=== PATIENT | female | born 1970 | race Caucasian/White ===

== ENCOUNTER 2018-08-29 09:55 | Emergency (ER) | payer MEDICAID ==
[~2018-08-29] VITALS: Ht 157.5 cm; Wt 52.6 kg
[2018-08-29 10:00] VITALS: BP 170/85
[2018-08-29] MEDS ORDERED: KETOROLAC 30 MG/1 ML IM ONE (10:30)
[2018-08-29] MEDS ORDERED: KETOROLAC 30 MG/1 ML ONE (10:44)
--- NOTE | 2018-08-29 11:10 | NUR ---
LATE ENTRY: PT CRYING IN ROOM STATING THAT SHE HAS NO PLACE TO GO. ERP AT BEDSIDE. PT GIVEN ADDITIONAL RESOURCE PAPERWORK FOR WOMEN'S CUSTODIAL. PT WALKED TO MAIN NURSING STATION REQUESTING HER DOG BACK, FROM THE [facility] IN THE AMBULANCE BAY. PT PUT RESOURCE PAPERWORK ON COUNTER STATING "I DON'T NEED THAT IT WONT HELP ME." PT ELOPED WITHOUT DC PAPERWORK. PT AMBULATED WITH STEADY GAIT.
== END 2018-08-29 11:14 | disposition left against medical advice (07) ==
LOC: ED 11:08
DX: S09.90XA Unspecified injury of head, initial encounter (principal); S89.91XA Unspecified injury of right lower leg, initial encounter; S89.92XA Unspecified injury of left lower leg, initial encounter; J15.9 Unspecified bacterial pneumonia; F17.200 Nicotine dependence, unspecified, uncomplicated; Y04.8XXA Assault by other bodily force, initial encounter; Y93.89 Activity, other specified; Y92.009 Unspecified place in unspecified non-institutional (private) residence as the place of occurrence of the external cause; Y99.8 Other external cause status
CPT/HCPCS: 71046; 99283

== ENCOUNTER 2019-10-20 16:06 | Inpatient (IN) | payer MEDICAID ==
[~2019-10-20] VITALS: Ht 157.5 cm; Wt 62.8 kg
--- NOTE | 2019-10-20 17:37 | NUR ---
SUMATRA OPENER; PT AMBULATORY WITH STEADY GAIT TO ROOM AT THIS TIME. CARLOS
[2019-10-20] MEDS ORDERED: KETOROLAC 30 MG/1 ML IM ONE (18:00)
[2019-10-20] MEDS ORDERED: SODIUM CHLORIDE 0.9% 1,000ML IV ONE (18:00)
[2019-10-20] MEDS ORDERED: PHENAZOPYRIDINE 200 MG TABLET PO ONE (18:00)
[2019-10-20] MEDS ORDERED: SODIUM CHLORIDE FLUSH 10ML SYR IVF ONE (18:00)
[2019-10-20] MEDS ORDERED: KETOROLAC 30 MG/1 ML ONE (18:08)
[2019-10-20] MEDS ORDERED: PHENAZOPYRIDINE 200 MG TABLET ONE (18:08)
[2019-10-20 18:09] LABS: CULTURE INDICATED? YES; MICROSCOPIC INDICATED
[2019-10-20 18:12] LABS: MEAN CORPUSCULAR HEMOGLOBIN 28.9 pg (27.0-34.8); MEAN CORPUSCULAR HGB CONC 32.3 g/dL (32.4-35.8); MEAN CORPUSCULAR VOLUME 89.5 fL (80-100); MEAN PLATELET VOLUME 9.9 fL (7.4-10.4); PLATELET COUNT 265 x10^3/uL (130-400); RED BLOOD COUNT 5.61 x10^6/uL (3.82-5.3); RED CELL DISTRIBUTION WIDTH 13.3 % (9.6-15.2)
[2019-10-20 18:24] LABS: ALBUMIN 3.3 g/dL (3.4-5.0); ANION GAP 7 mmol/L (5-15); CHLORIDE 106 mmol/L (98-107); CREATININE 0.81 mg/dL (0.55-1.02)
[2019-10-20] MEDS ORDERED: CEFTRIAXONE PMX 1GM/50ML 50 ML ONE (18:25)
[2019-10-20 18:30] LABS: BASOPHILS # (AUTO) 0.07 x10^3/uL (0-0.1); BASOPHILS % (AUTO) 0 % (0-1); EOSINOPHILS # (AUTO) 0.14 x10^3/uL (0-0.4); EOSINOPHILS % (AUTO) 1 % (1-7); LYMPHOCYTES # (AUTO) 2.44 x10^3/uL (1-3.4); LYMPHOCYTES % (AUTO) 15 % (22-44); MD SCAN; MONOCYTES # (AUTO) 1.62 x10^3/uL (0.2-0.8); MONOCYTES % (AUTO) 10 % (2-9); NEUTROPHILS % (AUTO) 75 % (42-75)
[2019-10-20] MEDS ORDERED: CEFTRIAXONE PMX 1GM/50ML 50 ML IV ONE (18:30)
--- NOTE | 2019-10-20 18:53 | NUR ---
bedside report from torres mcclain
[2019-10-20] MEDS ORDERED: KETOROLAC 30 MG/1 ML IVPush ONE (19:00)
--- NOTE | 2019-10-20 19:03 | NUR ---
Provided bedside report to JACKLYN Feldman. All questions answered. Francia RN to assume care of pt at this time.
--- NOTE | 2019-10-20 19:49 | NUR ---
PIV infiltrated. new iv started on other arm with good blood return
--- NOTE | 2019-10-20 19:55 | NUR ---
report to torres strickland
[2019-10-20] MEDS ORDERED: ONDANSETRON 2MG/ML, 2ML IVPush PRN (20:30)
[2019-10-20] MEDS ORDERED: NICOTINE 21 MG/24 HR PATCH.TD24 TD SCH (20:30)
[2019-10-20] MEDS ORDERED: ACETAMINOPHEN 325 MG TABLET PO PRN (20:30)
[2019-10-20] MEDS ORDERED: morphine SULFATE 10 MG/ML, 1ML IVPush PRN ×2 (20:30→20:32)
[2019-10-20] MEDS ORDERED: LORazepam 1MG TABLET PO PRN (20:30)
[2019-10-20 20:47] LABS: BILIRUBIN, DIRECT 0.2 mg/dL (0.1-0.2)
[2019-10-20 20:48] VITALS: BP 144/80
[2019-10-20 20:49] LABS: ALBUMIN 3.3 g/dL (3.4-5.0); BILIRUBIN,INDIRECT 0.5 mg/dL (0.0-2.0); BILIRUBIN,TOTAL 0.7 mg/dL (0.2-1.0)
[2019-10-20] MEDS: LACTATED RINGERS 1,000 ML IV SCH (21:00)
[2019-10-20 21:08] LABS: HCG UR SG 1.018 (1.003-1.030)
[2019-10-20 21:10] LABS: AMPHETAMINE SCREEN, URINE Positive (Negative); BARBITURATE SCREEN, URINE Negative (Negative); BENZODIAZEPINE SCREEN, URINE Negative (Negative); CANNABINOID SCREEN, URINE Negative (Negative); COCAINE SCREEN, URINE Negative (Negative); METHADONE SCREEN, URINE Negative (Negative); OPIATE SCREEN, URINE Negative (Negative)
[2019-10-21 00:32] VITALS: BP 148/76
[2019-10-21 05:27] LABS: MEAN CORPUSCULAR HEMOGLOBIN 29.3 pg (27.0-34.8); MEAN CORPUSCULAR VOLUME 88.7 fL (80-100); MEAN PLATELET VOLUME 10.1 fL (7.4-10.4); PLATELET COUNT 240 x10^3/uL (130-400); RED BLOOD COUNT 4.76 x10^6/uL (3.82-5.3); RED CELL DISTRIBUTION WIDTH 13.6 % (9.6-15.2)
[2019-10-21 05:39] LABS: ANION GAP 4 mmol/L (5-15); CALCIUM 8.5 mg/dL (8.5-10.1); CHLORIDE 110 mmol/L (98-107); CREATININE 0.81 mg/dL (0.55-1.02)
[2019-10-21] MEDS: LACTATED RINGERS 1,000 ML IV SCH ×2 (05:45→17:01)
[2019-10-21 06:06] LABS: BASOPHILS # (AUTO) 0.04 x10^3/uL (0-0.1); BASOPHILS % (AUTO) 0 % (0-1); EOSINOPHILS # (AUTO) 0.19 x10^3/uL (0-0.4); EOSINOPHILS % (AUTO) 2 % (1-7); LYMPHOCYTES # (AUTO) 2.12 x10^3/uL (1-3.4); LYMPHOCYTES % (AUTO) 17 % (22-44); MD SCAN; MONOCYTES # (AUTO) 1.53 x10^3/uL (0.2-0.8); MONOCYTES % (AUTO) 12 % (2-9); NEUTROPHILS # (AUTO) 8.94 x10^3/uL (1.8-6.8); NEUTROPHILS % (AUTO) 70 % (42-75)
[2019-10-21 07:23] VITALS: BP 148/88
[2019-10-21 15:49] VITALS: BP 136/77
[2019-10-21] MEDS ORDERED: CEFTRIAXONE PMX 1GM/50ML 50 ML IV SCH (18:00)
== END 2019-10-21 18:32 | disposition left against medical advice (07) | DRG 872 ==
LOC: ED 18:55 → EDIP 18:56 → 3N 20:19
PROVIDERS: ADMIT Family Medicine; ATTEND Family Medicine
DX: A41.9 Sepsis, unspecified organism (principal); E44.0 Moderate protein-calorie malnutrition; N10 Acute pyelonephritis; R65.20 Severe sepsis without septic shock; Z53.29 Procedure and treatment not carried out because of patient's decision for other reasons; Z88.6 Allergy status to analgesic agent; Z88.0 Allergy status to penicillin; Z88.2 Allergy status to sulfonamides; F15.10 Other stimulant abuse, uncomplicated; F17.210 Nicotine dependence, cigarettes, uncomplicated; F43.10 Post-traumatic stress disorder, unspecified; Z59.0 Homelessness; Z91.19 Patient's noncompliance with other medical treatment and regimen; Z68.25 Body mass index [BMI] 25.0-25.9, adult
CPT/HCPCS: 36415; 80048; 80076; 80307; 81001; 81025; 82040; 83605; 85025; 87040; 87077; 87086; 87186; 96374; G0378; J0696; J1885; J2270; J7030; J7120

== ENCOUNTER 2019-11-19 07:47 | Emergency (ER) | payer MEDICAID ==
[~2019-11-19] VITALS: Ht 157.5 cm; Wt 61.4 kg
--- NOTE | 2019-11-19 08:20 | NUR ---
FIRST CONTACT WITH PT. PT C/O SORE THROAT FOR FOUR DAYS, NECK PAIN, LYMPH PAIN. PT DENIES COUGH/SOB. PT'S AOX4. RESPS EVEN AND UNLABORED. BP/SPO2 MONITORS IN PLACE. CALL LIGHT WITHIN REACH. PA AT BEDSIDE TO EVALUATE AT THIS TIME.
[2019-11-19 08:21] VITALS: BP 168/83
[2019-11-19] MEDS ORDERED: DEXAMETHASONE 4 MG/ML, 1ML ONE (08:26)
[2019-11-19] MEDS ORDERED: DEXAMETHASONE 4 MG/ML, 1ML PO ONE (08:30)
--- NOTE | 2019-11-19 08:31 | NUR ---
PT MEDICATED PER EMAR. PT TOLERATED WELL.
--- NOTE | 2019-11-19 08:39 | NUR ---
Patient given discharge instructions and they have confirmed that they understand the instructions. Patient ambulatory with steady gait.
== END 2019-11-19 08:40 | disposition home or self-care (01) ==
LOC: ED 08:24
DX: J03.00 Acute streptococcal tonsillitis, unspecified (principal); H92.02 Otalgia, left ear
CPT/HCPCS: 99283; J1100

== ENCOUNTER 2019-11-20 19:45 | Inpatient (IN) | payer MEDICAID ==
[~2019-11-20] VITALS: Ht 157.5 cm; Wt 64.3 kg
--- NOTE | 2019-11-20 19:54 | NUR ---
Patient BIB [facility] c/o sore throat, ear, and neck pain. Patient was here yesterday for same and symptoms became worse since then. Patient is obviously uncomfortable. Respirations even and unlabored.
[2019-11-20] MEDS ORDERED: ONDANSETRON 2MG/ML, 2ML IVPush ONE (20:00)
[2019-11-20] MEDS ORDERED: MORPHINE SULFATE 4 MG/ML, 1ML IVPush PRN (20:00)
[2019-11-20] MEDS ORDERED: CLINDAMYCIN 150 MG/ML, 6ML IV ONE (20:00)
[2019-11-20] MEDS ORDERED: SODIUM CHLORIDE 0.9% 1,000ML IVBOLUS ONE (20:00)
[2019-11-20] MEDS ORDERED: MORPHINE SULFATE 4 MG/ML, 1ML ONE (20:01)
[2019-11-20] MEDS ORDERED: ONDANSETRON 2MG/ML, 2ML ONE (20:01)
[2019-11-20] MEDS ORDERED: CLINDAMYCIN PMX 600MG/50ML 50 ML ONE (20:17)
[2019-11-20] MEDS ORDERED: CLINDAMYCIN PMX 600MG/50ML 50 ML IV ONE (20:30)
--- NOTE | 2019-11-20 20:44 | NUR ---
Patient states the morphine improved her pain.
[2019-11-20 21:00] LABS: ALBUMIN 3.3 g/dL (3.4-5.0); ANION GAP 6 mmol/L (5-15); CALCIUM 9.5 mg/dL (8.5-10.1); CHLORIDE 103 mmol/L (98-107); CREATININE 0.68 mg/dL (0.55-1.02)
[2019-11-20 21:03] LABS: MEAN CORPUSCULAR HEMOGLOBIN 28.5 pg (27.0-34.8); MEAN CORPUSCULAR VOLUME 89.1 fL (80-100); MEAN PLATELET VOLUME 10.1 fL (7.4-10.4); PLATELET COUNT 366 x10^3/uL (130-400); RED BLOOD COUNT 5.41 x10^6/uL (3.82-5.3); RED CELL DISTRIBUTION WIDTH 13.5 % (9.6-15.2)
--- NOTE | 2019-11-20 21:25 | NUR ---
Patient in CT.
[2019-11-20] MEDS ORDERED: OMNIPAQUE 350 MG/ML, 100ML BOTTLE ONE (21:35)
[2019-11-20 21:39] LABS: BASOPHILS # (AUTO) 0.11 x10^3/uL (0-0.1); BASOPHILS % (AUTO) 1 % (0-1); EOSINOPHILS # (AUTO) 0.09 x10^3/uL (0-0.4); EOSINOPHILS % (AUTO) 1 % (1-7); LYMPHOCYTES % (AUTO) 12 % (22-44); MD SCAN; MONOCYTES # (AUTO) 1.95 x10^3/uL (0.2-0.8); MONOCYTES % (AUTO) 10 % (2-9); NEUTROPHILS # (AUTO) 15.65 x10^3/uL (1.8-6.8); NEUTROPHILS % (AUTO) 78 % (42-75)
[2019-11-20] MEDS ORDERED: LIDOCAINE-MPF 1%, 5ML ONE (23:14)
[2019-11-20] MEDS ORDERED: BENZOCAINE 20% SPRAY 0.5ML ONE (23:14)
[2019-11-20] MEDS ORDERED: BENZOCAINE AEROSOL SPRAY 20%, 60ML TP ONE (23:30)
[2019-11-20] MEDS ORDERED: LIDOCAINE-MPF 1%, 5ML INFIL ONE (23:30)
[2019-11-20] MEDS ORDERED: LIDOCAINE 1%-EPI 1:100K, 20ML ONE (23:43)
[2019-11-21] MEDS ORDERED: BISACODYL 10 MG SUPP PR PRN
[2019-11-21] MEDS ORDERED: ONDANSETRON 2MG/ML, 2ML IVPush PRN
[2019-11-21] MEDS ORDERED: morphine SULFATE 10 MG/ML, 1ML IVPush PRN
[2019-11-21] MEDS ORDERED: ACETAMINOPHEN 325 MG TABLET PO PRN
[2019-11-21] MEDS ORDERED: POLYETHYLENE GLYCOL 17 GM PACKET PO PRN
[2019-11-21] MEDS ORDERED: hydrALAzine 20 MG/ML, 1ML IVPush PRN
--- NOTE | 2019-11-21 00:08 | NUR ---
Report given to JACKLYN Carmichael. ENT in room now performing procedure. Patient to be transferred to room 469.
[2019-11-21] MEDS: LORazepam 2 MG/ML, 1ML IVPush ONE ×2 (00:45→00:56)
[2019-11-21] MEDS: NICOTINE 14MG/24 HR PATCH.TD24 TD SCH ×2 (00:56→23:49)
[2019-11-21] MEDS: NS + 20MEQ KCL 1,000 ML IV SCH ×3 (01:14→17:58)
[2019-11-21] MEDS: CLINDAMYCIN PMX 600MG/50ML 50 ML IV SCH ×3 (04:21→20:13)
[2019-11-21 05:23] LABS: MEAN CORPUSCULAR HEMOGLOBIN 29.4 pg (27.0-34.8); MEAN CORPUSCULAR HGB CONC 33.1 g/dL (32.4-35.8); MEAN CORPUSCULAR VOLUME 88.7 fL (80-100); MEAN PLATELET VOLUME 9.6 fL (7.4-10.4); PLATELET COUNT 328 x10^3/uL (130-400); RED BLOOD COUNT 4.51 x10^6/uL (3.82-5.3)
[2019-11-21 05:31] LABS: ANION GAP 4 mmol/L (5-15); CALCIUM 8.4 mg/dL (8.5-10.1); CHLORIDE 106 mmol/L (98-107)
[2019-11-21 05:34] LABS: CREATININE 0.61 mg/dL (0.55-1.02)
[2019-11-21 06:09] LABS: MD YES
[2019-11-21 06:11] LABS: <PLATELET ESTIMATE> ADEQUATE; <PLT MORPHOLOGY> NORMAL PLT MORPH; <RBC MORPHOLOGY> NORMAL; BAND#(MANUAL) 0.72 x10^3/uL; BANDS%(MANUAL) 4 % (0-7); LYMPH#(MANUAL) 3.94 x10^3/uL (1-3.4); LYMPHS% (MANUAL) 22 % (22-44); MONOS% (MANUAL) 5 % (2-9); SEG#(MANUAL) 12.35 x10^3/uL (1.8-6.8); SEGS% (MANUAL) 69 % (42-75)
[2019-11-21 06:47] VITALS: BP 138/89
[2019-11-21 13:15] VITALS: BP 143/84
[2019-11-21 18:51] VITALS: BP 135/71
[2019-11-22 01:14] VITALS: BP 138/80
[2019-11-22] MEDS: NS + 20MEQ KCL 1,000 ML IV SCH (01:41)
[2019-11-22] MEDS: CLINDAMYCIN PMX 600MG/50ML 50 ML IV SCH (04:04)
[2019-11-22 05:46] LABS: BASOPHILS # (AUTO) 0.17 x10^3/uL (0-0.1); BASOPHILS % (AUTO) 1 % (0-1); EOSINOPHILS # (AUTO) 0.25 x10^3/uL (0-0.4); EOSINOPHILS % (AUTO) 2 % (1-7); LYMPHOCYTES # (AUTO) 3.17 x10^3/uL (1-3.4); LYMPHOCYTES % (AUTO) 27 % (22-44); MD NO; MEAN CORPUSCULAR HEMOGLOBIN 28.9 pg (27.0-34.8); MEAN CORPUSCULAR HGB CONC 32.4 g/dL (32.4-35.8); MEAN CORPUSCULAR VOLUME 89.2 fL (80-100); MEAN PLATELET VOLUME 10.1 fL (7.4-10.4); MONOCYTES # (AUTO) 1.15 x10^3/uL (0.2-0.8); MONOCYTES % (AUTO) 10 % (2-9); NEUTROPHILS # (AUTO) 7.14 x10^3/uL (1.8-6.8); NEUTROPHILS % (AUTO) 60 % (42-75); PLATELET COUNT 310 x10^3/uL (130-400); RED BLOOD COUNT 4.41 x10^6/uL (3.82-5.3); RED CELL DISTRIBUTION WIDTH 13.3 % (9.6-15.2)
[2019-11-22 05:50] LABS: ALBUMIN 2.2 g/dL (3.4-5.0); ANION GAP 5 mmol/L (5-15); CALCIUM 8.4 mg/dL (8.5-10.1); CHLORIDE 111 mmol/L (98-107)
[2019-11-22 05:53] LABS: ALANINE AMINOTRANSFERASE 7 U/L (12-78); ALKALINE PHOSPHATASE 33 U/L (45-117); BILIRUBIN,TOTAL 0.6 mg/dL (0.2-1.0); CREATININE 0.71 mg/dL (0.55-1.02); TOTAL PROTEIN 5.9 g/dL (6.4-8.2)
[2019-11-22 06:36] VITALS: BP 131/84
[2019-11-22] MEDS ORDERED: CEFD300C37 PO (11:25)
== END 2019-11-22 12:00 | disposition home or self-care (01) | DRG 854 ==
LOC: ED 20:39 → EDIP 11-21 00:17 → 4NE 11-21 00:40
PROVIDERS: ADMIT Family Medicine; ATTEND Family Medicine
PROC: 0J950ZZ Drainage of Left Neck Subcutaneous Tissue and Fascia, Open Approach (ICD-10-PCS; principal; 2019-11-21)
DX: A41.9 Sepsis, unspecified organism (principal); J36 Peritonsillar abscess; L02.11 Cutaneous abscess of neck; E87.6 Hypokalemia; F15.10 Other stimulant abuse, uncomplicated; F17.210 Nicotine dependence, cigarettes, uncomplicated; F43.10 Post-traumatic stress disorder, unspecified; I16.0 Hypertensive urgency; Z59.0 Homelessness; Z88.6 Allergy status to analgesic agent; Z88.0 Allergy status to penicillin; Z88.2 Allergy status to sulfonamides
CPT/HCPCS: 36415; 70491; 80048; 80053; 82040; 83735; 85025; 86308; 87040; 87070; 87081; 87147; 87205; 87880; 93005; 96374; 96375; G0378; J2405; J3480; Q9967; J2060; J2270; J7030

== ENCOUNTER 2020-10-08 16:42 | Emergency (ER) | payer MEDICAID ==
[~2020-10-08] VITALS: Ht 157.5 cm; Wt 59.6 kg
[~2020-10-08 16:42] MED LIST: CEFD300C37 PO
--- NOTE | 2020-10-08 17:42 | NUR ---
secretary receptionist: pt has a dog with her. pt dog assisted to kennel by tech
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
--- NOTE | 2020-10-08 17:50 | NUR ---
DOG ASSISTED TO [facility] WITH THREE BLANKETS. DOG WAS ALSO WEARNING PT'S JACKET.
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
--- NOTE | 2020-10-08 17:58 | NUR ---
PT TO CT.
--- NOTE | 2020-10-08 18:05 | NUR ---
PT OFFERED BLANKET, PT REFUSING STATING "MY DOGS OUT THERE FREEZING, SO NO"
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
--- NOTE | 2020-10-08 18:29 | NUR ---
PT DECLINING TYLENOL D/T UPSETS STOMACH AND FLEXERIL D/T BEING IN ROOM ALONE.
[2020-10-08] MEDS ORDERED: ACETAMINOPHEN 500 MG TABLET PO ONE (18:30)
[2020-10-08] MEDS ORDERED: CYCLOBENZAPRINE 10 MG TABLET PO ONE (18:30)
--- NOTE | 2020-10-08 19:07 | NUR ---
REPORT GIVEN TO BHARATH VILLASENOR. PT IS UP FOR RECHECK, TACHYCARDIC, OTHER VS WDL. RESP EVEN AND UNLABORED, NADN.
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
[2020-10-08 19:28] VITALS: BP 148/84
== END 2020-10-08 19:45 | disposition home or self-care (01) ==
LOC: ED 17:00
DX: S16.1XXA Strain of muscle, fascia and tendon at neck level, initial encounter (principal); G89.11 Acute pain due to trauma; M54.5 Low back pain; R51.9 Headache, unspecified; R00.0 Tachycardia, unspecified; Y04.8XXA Assault by other bodily force, initial encounter; Y93.89 Activity, other specified; Y92.89 Other specified places as the place of occurrence of the external cause; Y99.8 Other external cause status
CPT/HCPCS: 70450; 72125; 93005; 99285